=== PATIENT | male | born 1980 | race Caucasian/White ===

== ENCOUNTER 2016-10-10 18:06 | Emergency (ER) | payer OTHER ==
[~2016-10-10] VITALS: Ht 187.9 cm; Wt 90.7 kg
[~2016-10-10 18:06] MED LIST: ATIVAN1 MG PO; DAYPRO600 M1 PO; DILANTIN KAPSE100 MG PO; EES400 MG PO; FLEXERIL10 MG PO; KLONOPIN1 MG PO; MEDROL DOSEPAK4 MG PO; MOTRIN400 MG PO; MOTRIN800 MG PO; NEURONTIN300 MG PO; PROAIR HFA0.09 MG/AC IH; ROBAXIN750 MG PO; ROBITUSSIN-AC 160 ML PO; SUDAFED60 MG PO; TRAMADOL HCL50 MG PO; TRIMOX500 MG PO; ULTRAM100 MG PO; VICODIN 5/500 505 MG PO; Vicodin 5/500 505 MG PO; ZANTAC150 MG PO; ZITHROMAX250 MG PO; ZOFRAN4 MG PO
[2016-10-10 19:18] LABS: BASO % 0.8 % (0.0-1.0); EOS % 0.8 % (1.0-4.0); HEMATOCRIT 39.7 % (42.0-52.0); HEMOGLOBIN 13.3 g/dl (14.0-18.0); LYMPH # 2.4 10*3/uL (1.3-4.4); LYMPH % 45.1 % (27.0-41.0); MEAN CELL VOLUME 92.8 fl (80.0-94.0); MEAN CORPUSCULAR HGB 31.1 pg (27.0-31.0); MEAN CORPUSCULAR HGB CONC 33.5 g/dl (33.0-37.0); MEAN PLATELET VOLUME 10.4 fl (9.6-12.3); MONO # 0.6 10*3/uL (0.1-1.0); MONO % 11.6 % (3.0-9.0); NEUT # 2.2 10*3/uL (2.3-7.9); NEUT % 41.5 % (47.0-73.0); PLATELET COUNT AUTOMATED 215 10*3/uL (130-400); RED BLOOD COUNT 4.28 10*6/uL (4.50-5.90); RED CELL DISTRI WIDTH 13.9 % (0-14.5); WHITE BLOOD COUNT 5.3 10*3/uL (4.8-10.8)
[2016-10-10 19:34] LABS: ALBUMIN 3.6 gm/dl (3.1-4.5); ALKALINE PHOSPHATASE 54 U/L (45-117); BILIRUBIN, TOTAL 0.3 mg/dl (0.2-1.0); BUN 18 mg/dl (7-24); CARBON DIOXIDE 25 mmol/L (21-32); CHLORIDE 108 mmol/L (98-107); EST GLOM FILT AFRICAN AMERICAN > 60 ml/min; GLUCOSE 91 mg/dL (65-99); POTASSIUM 3.9 mmol/L (3.5-5.1); SGOT/AST 21 IU/L (3-35); SGPT/ALT 21 U/L (12-78); SODIUM 140 mmol/L (136-145); TOTAL PROTEIN 6.9 gm/dL (6.4-8.2)
[2016-10-10 19:35] LABS: TROPONIN I < 0.015 ng/ml (<0.045)
== END 2016-10-10 22:10 | disposition home or self-care (01) ==
LOC: ED 18:06
PROVIDERS: Nurse Practitioner Family
DX: K59.00 Constipation, unspecified (principal); R19.01 Right upper quadrant abdominal swelling, mass and lump; Z98.890 Other specified postprocedural states; Z88.0 Allergy status to penicillin

== ENCOUNTER 2016-11-15 07:33 | Emergency (ER) | payer OTHER ==
[~2016-11-15] VITALS: Ht 187.9 cm; Wt 90.7 kg
[2016-11-15] MEDS ORDERED: GABAPENTIN TAB600 MG PO (07:45)
[2016-11-15] MEDS ORDERED: DIAZEPAM5 MG PO (07:45)
[2016-11-15 07:47] LABS: BASO % 0.7 % (0.0-1.0); EOS % 0.7 % (1.0-4.0); HEMATOCRIT 41.7 % (42.0-52.0); LYMPH # 1.5 10*3/uL (1.3-4.4); LYMPH % 27.1 % (27.0-41.0); MEAN CELL VOLUME 91.9 fl (80.0-94.0); MEAN CORPUSCULAR HGB 30.8 pg (27.0-31.0); MEAN CORPUSCULAR HGB CONC 33.6 g/dl (33.0-37.0); MEAN PLATELET VOLUME 9.8 fl (9.6-12.3); MONO # 0.5 10*3/uL (0.1-1.0); MONO % 8.7 % (3.0-9.0); NEUT # 3.4 10*3/uL (2.3-7.9); NEUT % 62.4 % (47.0-73.0); PLATELET COUNT AUTOMATED 224 10*3/uL (130-400); RED BLOOD COUNT 4.54 10*6/uL (4.50-5.90); RED CELL DISTRI WIDTH 13.2 % (0-14.5); WHITE BLOOD COUNT 5.4 10*3/uL (4.8-10.8)
[2016-11-15 08:02] LABS: ALBUMIN 4.1 gm/dl (3.1-4.5); ALKALINE PHOSPHATASE 50 U/L (45-117); BUN 18 mg/dl (7-24); CHLORIDE 102 mmol/L (98-107); CREATININE 1.88 mg/dL (0.70-1.30); POTASSIUM 4.4 mmol/L (3.5-5.1); SGOT/AST 30 IU/L (3-35); SGPT/ALT 27 U/L (12-78); SODIUM 137 mmol/L (136-145); TOTAL PROTEIN 7.7 gm/dL (6.4-8.2)
[2016-11-15 08:10] LABS: ETHYL ALCOHOL < 3.0 mg/dl (<3)
[2016-11-15 08:11] LABS: BILIRUBIN NEGATIVE (NEGATIVE); BLOOD NEGATIVE (NEGATIVE); CLARITY CLEAR (CLEAR); COLOR YELLOW (YELLOW); GLUCOSE NEGATIVE (NEGATIVE); KETONE NEGATIVE (NEGATIVE); LEUKO ESTERASE NEGATIVE (NEGATIVE); NITRITE NEGATIVE (NEGATIVE); UROBILINOGEN 0.2 E.U./dl (0.2-1.0)
[2016-11-15 08:19] LABS: URINE AMPHETAMINES > 1000 (1000ng/ml); URINE BARBITURATES < 200 (200ng/ml); URINE BENZODIAZEPINES > 200 (200ng/ml); URINE CANNABINOIDS (THC) < 50 (50ng/ml); URINE COCAINE < 300 (300ng/ml); URINE METHADONE < 300 (300ng/ml); URINE OPIATES < 300 (300ng/ml); WBC 0-2 wbc/hpf (0-5)
[2016-11-15 08:20] LABS: URINE PHENCYCLIDINE < 25 (25ng/ml)
== END 2016-11-15 12:04 | disposition home or self-care (01) ==
LOC: ED 07:33
PROVIDERS: Emergency Medicine
DX: R56.9 Unspecified convulsions (principal); N17.9 Acute kidney failure, unspecified; Z98.890 Other specified postprocedural states; Z88.0 Allergy status to penicillin

== ENCOUNTER 2016-11-15 22:13 | Inpatient (IN) | payer OTHER ==
[~2016-11-15] VITALS: Ht 188 cm; Wt 90.8 kg
--- NOTE | ~2016-11-15 | CON ---
[place], [place] REPORT OF CONSULTATION NAME: SHAYY PIERRE UNIT #: [id number] ROOM: [facility] DOCTOR: CHELSEA RUDD ED.D) BIRTHDATE: [birth year] DOS: 11/16/2016 HISTORY OF PRESENT ILLNESS: The patient is a 35-year-old male referred by the hospitalist for an evaluation of his depression. At the present time, this patient is in the intensive care unit at [facility]. He states he is single and has no children. Parents are both living and he has 3 brothers. He last worked at [employer] in [place], [place]. He does follow with the resident clinic here in [place] at the [facility] [address]. His medical history is pertinent for past history of gastrointestinal surgery, emphysema, hepatitis C, and kidney disease. His medications include Neurontin and Valium. This patient was brought to the Emergency Department after receiving Narcan for substance abuse. He has a long history of abuse of opiates along with amphetamines and benzodiazepines. This patient was awake, alert and oriented in all three spheres. He denied any suicidal ideation or plan. He does not appear to be having any active hallucinations or delusional thoughts. [facility] with Dr. Aman Alcantara and Dr. Tran. He has been in multiple treatment programs for substance abuse along with depression. He believes he abuses substances to overcome his depression. He was evaluated by Dr. Fleming today and he recommended outpatient followup and also prescribed Latuda. This patient's father was present during the interview at the patient's request and father requested that he be transferred to inpatient psych or substance abuse. I did suggest that he might be able to be followed at the [facility] or another substance abuse clinic here in the area. The patient did agree to do this and I contacted case management and they were going to try to arrange transfer to inpatient treatment for this patient. Again, he denies any suicidal ideation or plan and states he needs help with his substance abuse. His father was quite distressed regarding the patient's condition, which is understandable. DIAGNOSES: 1. Persistent depressive disorder. 2. Polysubstance abuse. RECOMMENDATIONS: In my opinion, this patient would benefit from inpatient substance abuse treatment and eventual psychiatric treatment for his underlying depression. Thank you very much for this consult. [place], [place] REPORT OF CONSULTATION NAME: SHAYY PIERRE UNIT #: [id number] ROOM: [facility] DOCTOR: CHELSEA RUDD ED.D (DAJA) BIRTHDATE: [birth year] CHELSEA RUDD ED.D CM:CONSTR:REPORT OF CONSULTATION 11/18/16 0305 interface
--- NOTE | ~2016-11-15 | CON ---
[place], [place] REPORT OF CONSULTATION NAME: SHAYY PIERRE UNIT #: [id number] ROOM: [facility] DOCTOR: DARIAN PIZANO MD BIRTHDATE: [birth year] DOS: 11/16/2016 CHIEF COMPLAINT: "I have not slept in days." HISTORY OF PRESENT ILLNESS: This is a 35-year-old male who was admitted secondary to drug intoxication. The patient apparently at one point while in the ER, said that he had not slept in days and was very depressed and suicidal, since that time, he has denied depression and suicidality, but states that he does have chronic insomnia. The patient reports that he has trouble falling asleep, staying asleep, and wakes up tired, but again denies that he is depressed nor is he is suicidal. He states that he has been on all the antidepressants out there as well as many other mood stabilizers and most recently, he has been on Neurontin and Valium and states that these at times have helped. Notes indicate that patient had been living with his mother, but that she does not want him back, but the father seems to be willing to let patient come in to his home post-discharge. MENTAL STATUS: The patient is alert and oriented with some time gaps. He was rather drowsy and was waking up from napping. He denies any other neurovegetative symptoms other than the sleep issues. Denies depression, denies crying spells. Denies mood swings. Denies anxiety and then later did state that he does have bouts of anxiety. Memory seemed to be intact. DIAGNOSIS: Mood disorder, not otherwise specified. PLAN: I will go ahead and prescribe him Latuda 40 mg at bedtime. This can be rapidly increased to 80 or 120 mg at bedtime if needed. I would avoid any addictive substances. No sleeping pills, no benzos. I do not think he is truly suicidal and do not think he needs further psychiatric intervention at this point. DARIAN PIZANO MD CM:CONSTR:REPORT OF CONSULTATION 1003 11/16/16 1351 interface
[2016-11-15 22:13] VITALS: BP 127/78
[~2016-11-15 22:13] MED LIST changes: +DIAZEPAM5 MG PO; +GABAPENTIN TAB600 MG PO
--- NOTE | 2016-11-15 22:45 | NUR ---
NASOPHARYNGEAL AIRWAY INITIATED VIA DR HUERTA RIGHT NOSTRIL. PT TOLERATED.
[2016-11-15 23:14] LABS: BASO # 0.1 10*3/uL (0.0-0.1); BASO % 0.4 % (0.0-1.0); EOS % 0.2 % (1.0-4.0); HEMATOCRIT 39.6 % (42.0-52.0); HEMOGLOBIN 13.5 g/dl (14.0-18.0); LYMPH # 3.4 10*3/uL (1.3-4.4); LYMPH % 30.4 % (27.0-41.0); MEAN CELL VOLUME 90.2 fl (80.0-94.0); MEAN CORPUSCULAR HGB 30.8 pg (27.0-31.0); MEAN CORPUSCULAR HGB CONC 34.1 g/dl (33.0-37.0); MEAN PLATELET VOLUME 9.4 fl (9.6-12.3); MONO # 1.2 10*3/uL (0.1-1.0); MONO % 10.8 % (3.0-9.0); NEUT # 6.5 10*3/uL (2.3-7.9); NEUT % 57.8 % (47.0-73.0); PLATELET COUNT AUTOMATED 211 10*3/uL (130-400); RED BLOOD COUNT 4.39 10*6/uL (4.50-5.90); RED CELL DISTRI WIDTH 13.2 % (0-14.5); WHITE BLOOD COUNT 11.3 10*3/uL (4.8-10.8)
[2016-11-15 23:30] LABS: ALKALINE PHOSPHATASE 48 U/L (45-117); BUN 19 mg/dl (7-24); CHLORIDE 107 mmol/L (98-107); CREATININE 1.77 mg/dL (0.70-1.30); LIPASE 138 U/L (73-393); MAGNESIUM 2.1 mg/dL (1.5-2.1); POTASSIUM 4.1 mmol/L (3.5-5.1); SGOT/AST 26 IU/L (3-35); SGPT/ALT 23 U/L (12-78); SODIUM 141 mmol/L (136-145); TOTAL PROTEIN 7.7 gm/dL (6.4-8.2)
[2016-11-15 23:32] LABS: CKMB 2.3 ng/ml (0.5-3.6)
[2016-11-15 23:34] VITALS: BP 127/78
[2016-11-15 23:39] LABS: CPK 335 U/L (39-308); TROPONIN I < 0.015 ng/ml (<0.045)
--- NOTE | 2016-11-15 23:46 | NUR ---
PT'S FATHER SHAUNNA PIERRE IS HERE TO SEE PT, HE HAS PT'S PHONE AND WALLET AND WILL TAKE IT HOME. PT'S DAD STATES THAT PT CAN NOT RETURN TO HIS MOTHERS HOUSE WHERE HE CAME FROM, THE HOUSE WILL BE LOCKED AND BOARDED UP. WHEN PT IS DISCHARGED THE DAD WANTS CALLED TO COME GET HIM AND TAKE PT TO HIS HOUSE. SHAUNNA PIERRE'S PHONE # [phone].
[2016-11-16] VITALS (8 sets, daily range): BP systolic 99–137; BP diastolic 41–78
[2016-11-16 00:53] LABS: ACETAMINOPHEN (TYLENOL) < 2.0 ug/ml (10-30); ETHYL ALCOHOL < 3.0 mg/dl (<3)
[2016-11-16 01:18] LABS: URINE AMPHETAMINES < 1000 (1000ng/ml); URINE BARBITURATES < 200 (200ng/ml); URINE BENZODIAZEPINES > 200 (200ng/ml); URINE CANNABINOIDS (THC) < 50 (50ng/ml); URINE COCAINE < 300 (300ng/ml); URINE METHADONE < 300 (300ng/ml); URINE OPIATES < 300 (300ng/ml)
[2016-11-16 01:20] LABS: URINE PHENCYCLIDINE < 25 (25ng/ml)
--- NOTE | 2016-11-16 02:15 | NUR ---
A 35, admitted to [facility], under the services of ELIGIO López DO with a diagnosis of SUBSTANCE ABUSE,SUICIAL IDEATION. Chief complaint is INSOMNIA. Patient arrived via stretcher from ER. Monitor applied. Initial assessment completed. Vital signs taken and recorded. ELIGIO LÓPEZ DO notified of admission to the unit. Orders received. See assessment for past medical history, medications and allergies. Patient and/or family oriented to unit. [facility] visitation policy reviewed. Clothing/patient valuable form completed. DAVID HARRELL
--- NOTE | 2016-11-16 02:30 | NUR ---
PATIENT DENIES SUICIDE. PATIENT STATES HE HAS NOT SLEPT IN 3 DAYS. PATIENT IS DROWSY AND A LITTLE DISORIENTED TO PLACE AND TIME BUT REORIENTS EASILY WHEN AWAKE. TO BE CONSULTED IN AM.
--- NOTE | 2016-11-16 04:36 | NUR ---
PATIENT SLEEPING SOUNDLY, PATIENT DRANK 2 JUICES AND WENT RIGHT BACK TO SLEEP. VSS.
[2016-11-16 06:18] LABS: BASO # 0.1 10*3/uL (0.0-0.1); BASO % 0.6 % (0.0-1.0); EOS # 0.1 10*3/uL (0.0-0.4); HEMATOCRIT 36.4 % (42.0-52.0); HEMOGLOBIN 12.1 g/dl (14.0-18.0); LYMPH # 2.8 10*3/uL (1.3-4.4); LYMPH % 33.9 % (27.0-41.0); MEAN CELL VOLUME 92.2 fl (80.0-94.0); MEAN CORPUSCULAR HGB 30.6 pg (27.0-31.0); MEAN CORPUSCULAR HGB CONC 33.2 g/dl (33.0-37.0); MEAN PLATELET VOLUME 9.7 fl (9.6-12.3); MONO % 12.1 % (3.0-9.0); NEUT # 4.2 10*3/uL (2.3-7.9); NEUT % 52.2 % (47.0-73.0); PLATELET COUNT AUTOMATED 177 10*3/uL (130-400); RED BLOOD COUNT 3.95 10*6/uL (4.50-5.90); RED CELL DISTRI WIDTH 13.3 % (0-14.5); WHITE BLOOD COUNT 8.1 10*3/uL (4.8-10.8)
[2016-11-16 06:33] LABS: CKMB 2.1 ng/ml (0.5-3.6); CPK 273 U/L (39-308)
[2016-11-16 06:36] LABS: TROPONIN I < 0.015 ng/ml (<0.045)
[2016-11-16 06:43] LABS: BUN 19 mg/dl (7-24); CHLORIDE 110 mmol/L (98-107); CREATININE 1.38 mg/dL (0.70-1.30); SODIUM 141 mmol/L (136-145)
--- NOTE | 2016-11-16 07:54 | NUR ---
[facility] TOOK MESSAGE FOR DR. JERICA LEONARDO.
[2016-11-16 12:22] LABS: CPK 254 U/L (39-308); TROPONIN I < 0.015 ng/ml (<0.045)
--- NOTE | 2016-11-16 19:15 | NUR ---
NOTIFIED OF NEW CONSULT ORDER.
--- NOTE | 2016-11-16 21:01 | NUR ---
PT. RESTING IN BED. IVF CONTINUE ORDERED, SITE IN RA ASYMPT. LUNGS CLEAR BILAT, PULSE OX 98% ON RA. ABDOMEN SOFT ,NONDSITENDED AND NORMO. NO PERIPHERAL EDEMA NOTED. ERNESTO HOSE BILAT. RESP. EASY AND REG, NO DISTRESS.
[2016-11-17] VITALS: BP 114/63
[2016-11-17 04:00] VITALS: BP 115/69
[2016-11-17 04:51] LABS: BASO % 0.6 % (0.0-1.0); EOS # 0.1 10*3/uL (0.0-0.4); EOS % 2.4 % (1.0-4.0); HEMATOCRIT 34.9 % (42.0-52.0); HEMOGLOBIN 11.6 g/dl (14.0-18.0); LYMPH # 2.5 10*3/uL (1.3-4.4); LYMPH % 45.5 % (27.0-41.0); MEAN CELL VOLUME 92.1 fl (80.0-94.0); MEAN CORPUSCULAR HGB 30.6 pg (27.0-31.0); MEAN CORPUSCULAR HGB CONC 33.2 g/dl (33.0-37.0); MEAN PLATELET VOLUME 9.8 fl (9.6-12.3); MONO # 0.6 10*3/uL (0.1-1.0); MONO % 11.4 % (3.0-9.0); NEUT # 2.2 10*3/uL (2.3-7.9); NEUT % 39.9 % (47.0-73.0); PLATELET COUNT AUTOMATED 167 10*3/uL (130-400); RED BLOOD COUNT 3.79 10*6/uL (4.50-5.90); RED CELL DISTRI WIDTH 13.2 % (0-14.5); WHITE BLOOD COUNT 5.5 10*3/uL (4.8-10.8)
[2016-11-17 05:10] LABS: BUN 16 mg/dl (7-24); CHLORIDE 111 mmol/L (98-107); POTASSIUM 3.8 mmol/L (3.5-5.1); SODIUM 142 mmol/L (136-145)
[2016-11-17 05:13] LABS: ALKALINE PHOSPHATASE 42 U/L (45-117); SGOT/AST 21 IU/L (3-35); SGPT/ALT 18 U/L (12-78); TOTAL PROTEIN 6.2 gm/dL (6.4-8.2)
[2016-11-17 05:21] LABS: THYROID STIM HORMONE (HS) 0.263 uIU/ml (0.358-4.75)
[2016-11-17 08:00] VITALS: BP 120/61
--- NOTE | 2016-11-17 08:30 | NUR ---
LEAD SCIENTIST VS. SLEEPING. NOTES SAY WILL GO HOME WITH FATHER. FATHER WANTS CALLED WHEN DC AND HE WILL COME GET HIM. FATHER SAYS HE CANNOT GO BACK TO HIS MOTHERS. DOORS WILL BE LOCKED.
[2016-11-17] MEDS ORDERED: ASMANEX110 MC1 INH (09:24)
--- NOTE | 2016-11-17 10:00 | NUR ---
MEDS REVIEWED WITH PT
[2016-11-17 12:00] VITALS: BP 130/80
--- NOTE | 2016-11-17 12:25 | NUR ---
DR RUDD HERE AND SPOKE WITH PT AND FATHER
--- NOTE | 2016-11-17 12:40 | NUR ---
PER DAJA RUDD, PT AGREES TO [facility]. MESSAGED DAVID RIVERS TO WORK ON THIS. STATES HE WILL BE PUT ON WAITING LIST AND CALL HIM WHEN BED AVAILABLE. STATES SHE DOESNT KNOW WHERE ELSE HE CAN GO INPT. SPOKE WITH [facility] AND THEY WILL CALL ME BACK.
--- NOTE | 2016-11-17 13:02 | NUR ---
DAVID RIVERS HERE AND WILL LOOK INTO POSS PLACEMENT FACILITIES.
[2016-11-17 16:00] VITALS: BP 143/79
[2016-11-17 20:00] VITALS: BP 135/76
--- NOTE | 2016-11-17 21:07 | NUR ---
PT. RESTING IN BED, UP IN CHAIR AT TIMES. IVF INFUSING VIA RA, SITE ASYMPT. LUNGS CLEAR BILAT PULSE OX 98% ON RA. ABDOMNE SOFT, NONDISTENDED AND NORMO. NO PERIPHERAL EDEMA NOTED. RESP. EASY AND REG NO DISTRESS. TORI WILLIS, RN
[2016-11-18] VITALS: BP 111/59
[2016-11-18 04:00] VITALS: BP 114/66
[2016-11-18 04:28] LABS: BASO % 0.7 % (0.0-1.0); EOS # 0.1 10*3/uL (0.0-0.4); EOS % 2.4 % (1.0-4.0); HEMATOCRIT 35.9 % (42.0-52.0); HEMOGLOBIN 12.3 g/dl (14.0-18.0); LYMPH # 2.7 10*3/uL (1.3-4.4); LYMPH % 45.7 % (27.0-41.0); MEAN CELL VOLUME 90.4 fl (80.0-94.0); MEAN CORPUSCULAR HGB CONC 34.3 g/dl (33.0-37.0); MEAN PLATELET VOLUME 10.2 fl (9.6-12.3); MONO # 0.6 10*3/uL (0.1-1.0); MONO % 10.5 % (3.0-9.0); NEUT # 2.4 10*3/uL (2.3-7.9); NEUT % 40.5 % (47.0-73.0); PLATELET COUNT AUTOMATED 181 10*3/uL (130-400); RED BLOOD COUNT 3.97 10*6/uL (4.50-5.90); RED CELL DISTRI WIDTH 12.8 % (0-14.5); WHITE BLOOD COUNT 5.9 10*3/uL (4.8-10.8)
[2016-11-18 04:53] LABS: BUN 13 mg/dl (7-24); CHLORIDE 110 mmol/L (98-107); CREATININE 0.93 mg/dL (0.70-1.30); POTASSIUM 3.7 mmol/L (3.5-5.1); SODIUM 144 mmol/L (136-145)
[2016-11-18 08:00] VITALS: BP 133/70
--- NOTE | 2016-11-18 08:15 | NUR ---
MED REC REVIEWED AND NO CHANGES TO IT.
--- NOTE | 2016-11-18 08:52 | NUR ---
RESTING QUIETLY WITH NO C/O. IVF INFUSING VIA ASYMPTOMATIC SITE. URINAL AT BEDSIDE FOR SLEAR STRAW URINE.
--- NOTE | 2016-11-18 09:00 | NUR ---
SPOKE TO DAVID BARRIOS ABOUT DC PLAN. SHE IS WAITING FOR [facility] TO CALL BACK. NORMALLY HAVE A WAITING LIST. STATES MAYBE PT CAN BE DC AND FOLLOW UP OUPT. DISCUSSED FATHER'S WANTING PT PLACED. NIK BERG EXPIRES AT 2300 TONNIGHT. SHE WILL SEE PT LATER TODAY.
--- NOTE | 2016-11-18 11:02 | NUR ---
FATHER AT BEDSIDE .
[2016-11-18 12:00] VITALS: BP 139/80
--- NOTE | 2016-11-18 13:05 | NUR ---
PT REMOVED FROM THE MONITOR & IV CHANGED TO HEP LOCK. PATIENT IS A DO NOT MOVE NON-MONITORED
--- NOTE | 2016-11-18 13:16 | NUR ---
PATIENT DENIES ALL SUICIDAL THOUGHTS. AWAITING POSSIBLE PLACEMENT FOR INPATIENT ADDICTION. PER DAVID RIVERS HE DOES NOT MEET QUALIFICATIONS FOR INPATIENT PSYCH. THERE IS NO BEDS OR FACILITIES ABLE TO TAKE HIM FOR THE ADDICTION AT THIS HEBER. SPOKE WITH DR DAJA RUDD AND PER HIS NOTE YESTERDAY THE PATIENT IS NOT SUICIDAL & PER DR PIZANO'S NOTE THAT THE PATIENT IS NOT SUICIDAL. THE BEST THING HE CAN SUGGEST IS HE GOES DTRAIGHT TO [facility] UPON DISCHARGE & HOPE THAT THEY WILL ADMIT HIM ON ARRIVAL. ALSO GIVEN THE NUMBER FOR [facility] & IF CASE MANAGEMENT HAS ANY OTHER OPTIONS. DR RUGGIERO MADE AWARE
[2016-11-18] MEDS ORDERED: LATU40TA PO (14:40)
[2016-11-18] MEDS ORDERED: NATURE'S BLEND F1 MG PO (14:40)
[2016-11-18] MEDS ORDERED: THERA1 EACH PO (14:40)
[2016-11-18] MEDS ORDERED: NATURE'S BLEND100 M2 PO (14:40)
--- NOTE | 2016-11-18 14:48 | NUR ---
attempted today and yesterday to find this client inpatient rehab, i was able to get him on the list for [facility] [place] and i did give his nurse this info, they will accept him, but cannot get him into [facility] until next week and asked that he call them to check on the status of the list the end of this week, [facility] did not return my call x2, and i did also call [facility] , they have a waiting list as well but wanted to talk to the client directly and would not take the referral until they did so. i have not been able to find a direct transfer, all facilities seem to have waiting list., so this client would most likely need to be dc and await [facility] admission.
[2016-11-18 16:00] VITALS: BP 156/77
--- NOTE | 2016-11-18 17:55 | NUR ---
PATIENT DISCHARGED TO HOME. IV DISCONTINUED. DISCHARGE INSTRUCTIONS GIVEN AND REVIEWED WITH PATIENT. PATIENT INFORMED THAT PRESCRIPTIONS WERE SENT IN TO HIS PHARMACY.
== END 2016-11-18 17:55 | disposition home or self-care (01) | DRG 917 ==
LOC: ED 22:13 → EDHOLD 11-16 00:40 → ICCU 11-16 00:40
PROVIDERS: Emergency Medicine Emergency Medical Services; Internal Medicine; ADMIT Internal Medicine
DX: T50.991A Poisoning by other drugs, medicaments and biological substances, accidental (unintentional), initial encounter (principal); N17.0 Acute kidney failure with tubular necrosis; E43 Unspecified severe protein-calorie malnutrition; G93.41 Metabolic encephalopathy; F19.10 Other psychoactive substance abuse, uncomplicated; K59.00 Constipation, unspecified; G47.00 Insomnia, unspecified; E03.9 Hypothyroidism, unspecified; F34.1 Dysthymic disorder; F41.9 Anxiety disorder, unspecified; E83.51 Hypocalcemia; D64.9 Anemia, unspecified; Z88.0 Allergy status to penicillin; Z87.891 Personal history of nicotine dependence; Z79.899 Other long term (current) drug therapy; Z68.25 Body mass index [BMI] 25.0-25.9, adult; Y92.89 Other specified places as the place of occurrence of the external cause